=== PATIENT | male | born 1975 | race African-American/Black ===

== ENCOUNTER 2021-06-30 02:51 | Inpatient (IN) | payer OTHER ==
[2021-06-30] MEDS ORDERED: FUROSEMIDE 40 MG/4 ML VIAL ONE ×3 (03:14→16:47)
[2021-06-30 03:45] LABS: Absolute Lymphocytes (CBC) 2.4 K/uL (0.7-4.9); Hematocrit 43.4 % (39.6-49.0); Lymphocytes % 20.3 % (15.3-44.8); MPV 10.7 fL (7.6-11.3); RBC Red Blood Cell Count 4.96 M/uL (4.33-5.43)
[2021-06-30 03:56] LABS: Bilirubin Direct 0.3 mg/dL (0-0.2); Potassium 3.7 mmol/L (3.5-5.1); Protein, Total 7.4 g/dL (6.4-8.2); Troponin High Sensitivity 49.6 pg/mL (<58.9)
--- NOTE | 2021-06-30 04:18 | EDPHYS ---
Physician Documentation [facility] Name: Sophie Mancilla Age: 45 yrs Sex: Male : 1975 Arrival Date: 06/30/2021 Time: 02:54 Bed 5 Private MD: ED Physician Alfonzo Zelaya HPI: 06/30 04:12 This 45 yrs old Black Male presents to ER via Ambulatory with complaints of Shortness rn of breath, edema - Lower half of body. 04:12 The patient has shortness of breath with light activity. Onset: The symptoms/episode rn began/occurred 1 month(s) ago. Duration: The symptoms are intermittent. The patient's shortness of breath is aggravated by exertion, light activity, supine position, talking, walking. Associated signs and symptoms: Pertinent positives: non-productive cough, Pertinent negatives: chest pain, fever, hemoptysis. Severity of symptoms: At their worst the symptoms were moderate in the emergency department the symptoms are unchanged. The patient has not experienced similar symptoms in the past. The patient has been recently seen by a physician:. Patient reports 1 month of progressive swelling of lower extremities, started at ankles, progressed upwards, now has swelling of lower abdominal wall and of genitals. Reports pants are not fitting him. Reports orthopnea and dyspnea on exertion with nonproductive cough at night that is prompted him to sleep upright. PCP is ordered some tests and made him an appointment with cardiology but has not been able to get in yet.. Historical: - Allergies: 03:43 No Known Allergies; mk - Home Meds: 03:43 None [Active]; - PMHx: 03:43 Diabetes mellitus; - Immunization history:: Adult Immunizations up to date. - Social history:: Smoking status: Patient denies any tobacco usage or history of. - Family history:: not pertinent. - Hospitalizations: : No recent hospitalization is reported. ROS: 04:12 Constitutional: Negative for fever, chills, and weight loss, Eyes: Negative for injury, rn pain, redness, and discharge, Neck: Negative for injury, pain, and swelling, Cardiovascular: Positive for edema Respiratory: Positive for shortness of breath Abdomen/GI: Negative for abdominal pain, nausea, vomiting, diarrhea, and constipation, Back: Negative for injury and pain, : Negative for injury, bleeding, discharge, and swelling, MS/Extremity: Negative for injury and deformity, Skin: Negative for injury, rash, and discoloration, Neuro: Negative for headache, weakness, numbness, tingling, and seizure. Exam: 04:12 Constitutional: This is a well developed, well nourished patient who is awake, alert, rn mild tachypnea Head/Face: Normocephalic, atraumatic. Eyes: Periorbital areas with no swelling, redness, or edema. ENT: No stridor Cardiovascular: Tachycardic, regular Respiratory: Mild tachypnea, no retractions Abdomen/GI: Soft, nontender, pitting edema lower anterior abdominal wall Back: Pitting edema lower back Skin: Warm, dry Neuro: Awake and alert, GCS 15, oriented to person, place, time, and situation. Cranial nerves II-XII grossly intact. Motor strength 5/5 in all extremities. Sensory grossly intact. Vital Signs: 03:05 BP 141 / 100; Pulse 121; Resp 20; Temp 98.3; Pulse Ox 98% on R/A; mk 04:45 BP 115 / 64; Pulse 108; Resp 20; Pulse Ox 98% on R/A; mk 05:45 BP 107 / 58; Pulse 112; Resp 20; Pulse Ox 98% on R/A; mk 07:41 Weight 162 kg; Height 6 ft. 2 in. (187.96 cm); vg1 20:09 BP 119 / 79; Pulse 107; Resp 20; Pulse Ox 98% on R/A; st1 07:41 Body Mass Index 45.85 (162.00 kg, 187.96 cm) vg1 [place] Coma Score: 04:45 Eye Response: spontaneous(4). Verbal Response: oriented(5). Motor Response: obeys mk commands(6). Total: 15. 05:45 Eye Response: spontaneous(4). Verbal Response: oriented(5). Motor Response: obeys mk commands(6). Total: 15. MDM: 03:04 Patient medically screened. rn 04:12 Differential diagnosis: Anemia Anxiety Reaction CHF exacerbation, pneumonia, rn Pneumothorax pulmonary edema. Data reviewed: vital signs, nurses notes, lab test result(s), EKG, radiologic studies, plain films, and as a result, I will admit patient. Counseling: I had a detailed discussion with the patient and/or guardian regarding: the historical points, exam findings, and any diagnostic results supporting the discharge/admit diagnosis, lab results, radiology results, the need for further work-up and treatment in the hospital. Response to treatment: the patient's symptoms have mildly improved after treatment, and as a result, I will admit patient. Admission orders: after a detailed discussion of the patient's condition and case, the admit orders are written by me. 05:18 ED course: Patient COVID-positive, patient states had COVID along with his family rn around Varun time and states got better. Today symptoms more consistent with CHF or cardiomyopathy and not infectious.. 06/30 03:13 Order name: Basic Metabolic Panel; Complete Time: 04:04 rn 06/30 03:13 Order name: CBC with Diff; Complete Time: 04:10 rn 06/30 03:13 Order name: LFT's; Complete Time: 04:10 rn 06/30 03:13 Order name: NT PRO-BNP; Complete Time: 04:04 rn 06/30 03:13 Order name: Troponin HS; Complete Time: 04:10 rn 06/30 03:13 Order name: COVID-19/FLU A+B (Document "Date of Onset" if Symptomatic); Complete Time: rn 06/30 03:13 Order name: XRAY Chest (1 view); Complete Time: 19:21 rn 06/30 03:13 Order name: EKG; Complete Time: 03:14 rn 06/30 07:51 Order name: Glucose, Ancillary Testing; Complete Time: 19:21 EDNC 06/30 08:51 Order name: Urine Dipstick-Ancillary; Complete Time: 19:21 EDNC 06/30 09:34 Order name: Urinalysis; Complete Time: 19:21 EDNC 06/30 12:22 Order name: Glucose, Ancillary Testing; Complete Time: :21 EDNC 06/30 17:07 Order name: Glucose, Ancillary Testing; Complete Time: 19:21 EDNC 06/30 03:13 Order name: Cardiac monitoring; Complete Time: 03:22 rn 06/30 03:13 Order name: EKG - Nurse/Tech; Complete Time: 03:22 rn 06/30 03:13 Order name: IV Saline Lock; Complete Time: 03:22 rn 06/30 03:13 Order name: Labs collected and sent; Complete Time: 03:22 rn 06/30 03:13 Order name: O2 Per Protocol; Complete Time: 03:22 rn 06/30 03:13 Order name: O2 Sat Monitoring; Complete Time: 03:22 rn Administered Medications: 03:23 Drug: Lasix (furosemide) 40 mg Route: IVP; Site: right antecubital; sm5 Disposition Summary: 06/30/21 04:16 Hospitalization Ordered Hospitalization Status: Inpatient Admission rn Provider: Dennis Demarco rn Condition: Stable rn Problem: an ongoing problem rn Symptoms: have improved rn Bed/Room Type: Standard rn Location: Telemetry/MedSurg (Inpatient)(06/30/21 18:49) bd Room Assignment: [facility](06/30/21 18:49) Diagnosis - Unspecified combined systolic (congestive) and diastolic (congestive) heart failure rn - Acute pulmonary edema rn - Dyspnea, unspecified rn Forms: - Medication Reconciliation Form rn - SBAR form rn Signatures: Dispatcher [employer] EDLeticia Larson Martha RN Alfonzo Garcia MD MD rn Attema, Lee, ACQUISITION ADVISOR-C ACQUISITION ADVISOR-Cla1 Kayla Panchal RN RN sm5 Donna Shirley RN RN mk Corrections: (The following items were deleted from the chart) 04:52 04:16 Telemetry/MedSurg (Inpatient) rn mw 04:52 04:16 rn mw 18:49 04:52 BR ER HOLD mw bd 18:49 04:52 ERHOLD- mw bd
--- NOTE | 2021-06-30 04:18 | ER ---
Nurse's Notes [facility] Name: Sophie Mancilla Age: 45 yrs Sex: Male : 1975 Arrival Date: 06/30/2021 Time: 02:54 Bed 5 Private MD: Diagnosis: Unspecified combined systolic (congestive) and diastolic (congestive) heart failure;Acute pulmonary edema;Dyspnea, unspecified Presentation: 06/30 03:05 Chief complaint: Patient states: C/o swelling to lower abdomen and stomach for weeks, mk and recently started developing SOB. pt states he is supposed to see a picker box operator regarding this in the next few weeks. Coronavirus screen: Vaccine status: Patient reports being unvaccinated. Ebola Screen: Patient negative for fever greater than or equal to 101.5 degrees Fahrenheit, and additional compatible Ebola Virus Disease symptoms. Initial Sepsis Screen: Does the patient meet any 2 criteria? No. Patient's initial sepsis screen is negative. Does the patient have a suspected source of infection? No. Patient's initial sepsis screen is negative. Risk Assessment: Do you want to hurt yourself or someone else? Patient reports no desire to harm self or others. Onset of symptoms was May 30, 2021. 03:05 Method Of Arrival: Ambulatory 03:05 Acuity: BRADLEY 3 Triage Assessment: 19:41 General: Appears in no apparent distress. comfortable, Behavior is calm, cooperative. st1 Historical: - Allergies: 03:43 No Known Allergies; - Home Meds: 03:43 None [Active]; - PMHx: 03:43 Diabetes mellitus; - Immunization history:: Adult Immunizations up to date. - Social history:: Smoking status: Patient denies any tobacco usage or history of. - Family history:: not pertinent. - Hospitalizations: : No recent hospitalization is reported. Screenin:43 Abuse screen: Denies threats or abuse. Nutritional screening: No deficits noted. Tuberculosis screening: No symptoms or risk factors identified. Fall Risk No fall in past 12 months (0 pts). No secondary diagnosis (0 pts). IV access (20 points). Ambulatory Aid- None/Bed Rest/Nurse Assist (0 pts). Gait- Normal/Bed Rest/Wheelchair (0 pts) Mental Status- Oriented to own ability (0 pts). Total Nicole Fall Scale indicates No Risk (0-24 pts). Assessment: 03:45 Neuro: Level of Consciousness is awake, alert, obeys commands, Oriented to person, mk place, time, situation, Moves all extremities. Gait is steady, Speech is normal. Cardiovascular: Heart tones S1 S2 present Capillary refill < 3 seconds in bilateral fingers toes Clubbing of nail beds is absent JVD is absent Patient's skin is warm and dry. Pulses are 2+ in right radial artery, right dorsalis pedis artery, left radial artery and left dorsalis pedis artery Edema is 2+ to left lower thigh, left knee, left midcalf, left ankle, left foot, right lower thigh, right knee, right midcalf, right ankle and right foot Rhythm is sinus tachycardia. Respiratory: Reports shortness of breath on exertion Airway is patent Trachea Respiratory effort is even, unlabored, Respiratory pattern is regular, symmetrical, Breath sounds are clear. GI: Abdomen is distended. : No signs and/or symptoms were reported regarding the genitourinary system. Derm: Skin is intact, is healthy with good turgor. 07:03 Pain: Denies pain. mk Vital Signs: 03:05 BP 141 / 100; Pulse 121; Resp 20; Temp 98.3; Pulse Ox 98% on R/A; mk 04:45 BP 115 / 64; Pulse 108; Resp 20; Pulse Ox 98% on R/A; mk 05:45 BP 107 / 58; Pulse 112; Resp 20; Pulse Ox 98% on R/A; mk 07:41 Weight 162 kg; Height 6 ft. 2 in. (187.96 cm); vg1 20:09 BP 119 / 79; Pulse 107; Resp 20; Pulse Ox 98% on R/A; st1 07:41 Body Mass Index 45.85 (162.00 kg, 187.96 cm) vg1 [place] Coma Score: 04:45 Eye Response: spontaneous(4). Verbal Response: oriented(5). Motor Response: obeys commands(6). Total: 15. 05:45 Eye Response: spontaneous(4). Verbal Response: oriented(5). Motor Response: obeys mk commands(6). Total: 15. ED Course: 02:54 Patient arrived in ED. wm 03:04 Alfonzo Zelaya MD is Attending Physician. rn 03:22 XRAY Chest (1 view) Sent. sm5 03:22 COVID-19/FLU A+B (Document "Date of Onset" if Symptomatic) Sent. sm5 03:22 Basic Metabolic Panel Sent. sm5 03:22 CBC with Diff Sent. sm5 03:22 LFT's Sent. sm5 03:22 NT PRO-BNP Sent. sm5 03:22 Troponin HS Sent. sm5 03:42 Triage completed. 04:11 XRAY Chest (1 view) In Process Unspecified. EDMS 04:16 Dennis Demarco DO is Hospitalizing Provider. rn 07:17 Birdie Rodriguez, ILYA is Primary Nurse. vg1 19:41 No provider procedures requiring assistance completed. st1 19:41 Arm band placed on right wrist. st1 19:41 Patient has correct armband on for positive identification. Bed in low position. Call st1 light in reach. Side rails up X 1. 20:09 Patient admitted, IV remains in place. st1 Administered Medications: 03:23 Drug: Lasix (furosemide) 40 mg Route: IVP; Site: right antecubital; [facility] Output: 07:03 Urine: 3000ml; Total: 3000ml. Outcome: 04:16 Decision to Hospitalize by Provider. rn 20:07 Admitted to Tele accompanied by nurse, via wheelchair, room 413, with chart, Report st1 called to ILYA Sanchez 20:09 Condition: stable st1 20:09 Instructed on the need for admit. 20:13 Patient left the ED. st1 Signatures: Dispatcher [employer] EDCO Alfonzo Zelaya MD MD rn Garcia, Victoria RN ILYA 1 María Gupta Sarah, RN RN sm5 Kotarski, Madeline, RN RN mk Tingle, Shellie, RN RN st1 Corrections: (The following items were deleted from the chart) 07:06 03:00 Neuro: Level of Consciousness is awake, alert, obeys commands, Oriented to person, place, time, situation, Moves all extremities. Gait is steady, Speech is normal, 07:06 03:00 Cardiovascular: [facility] 07:06 03:00 Cardiovascular: Heart tones S1 S2 present Capillary refill < 3 seconds in bilateral fingers toes Clubbing of nail beds is absent JVD is absent Patient's skin is warm and dry. Pulses are 2+ in right radial artery, right dorsalis pedis artery, left radial artery and left dorsalis pedis artery Edema is 2+ to left lower thigh, left knee, left midcalf, left ankle, left foot, right lower thigh, right knee, right midcalf, right ankle and right foot Rhythm is sinus tachycardia 03:00 Respiratory: Reports shortness of breath on exertion Airway is patent Trachea Respiratory effort is even, unlabored, Respiratory pattern is regular, symmetrical, Breath sounds are clear 03:00 GI: Abdomen is distended, [facility] 03:00 : No signs and/or symptoms were reported regarding the genitourinary system. [facility] 03:00 Derm: Skin is intact, is healthy with good turgor, [facility]
--- NOTE | 2021-06-30 04:29 | P.HP ---
Certification for Inpatient Patient admitted to: Observation With expected LOS: <2 Midnights Patient will require the following post-hospital care: None Practitioner: I am a practitioner with admitting privileges, knowledge of patient current condition, hospital course, and medical plan of care. Services: Services provided to patient in accordance with Admission requirements found in Title 42 Section 412.3 of the Code of Federal Regulations Patient History Date of Service: 06/30/21 Primary Care Provider: Enrique crenshaw Reason for admission: Dyspnea, edema History of Present Illness: 45-year-old -Northern Irish female with history of diabetes mellitus type 2 presents emergency department for progressive lower extremity edema, shortness of breath over the course of the last 1 month. Patient was evaluated in the emergency department labs were significant for white blood cell count 1.7 creatinine 1.32 GFR 71 glucose 126 BNP 3544 chest x-ray appears to show mild to moderate volume overload pattern. Patient with 3+ pitting edema bilateral lower extremities, anasarca of lower abdomen and swelling of the scrotum. Suspected n ew onset CHF, ED provider wishes to admit for further evaluation and management. - Past Medical/Surgical History -: Diabetes mellitus type 2 -: None Psychosocial/ Personal History: Patient is employed as orchard worker, lives at home with his - Family History Family History: Reviewed- Non-Contributory - Social History Smoking Status: Never smoker Alcohol use: No CD- Drugs: Yes Caffeine use: No Place of Residence: Home Review of Systems 10-point ROS is otherwise unremarkable Respiratory: Cough ( ), Shortness of Breath Cardiovascular: Paroxysmal Noc. Dyspnea, Edema Physical Examination - Physical Exam General: Alert, In no apparent distress, Oriented x3 HEENT: Atraumatic, PERRLA, Mucous membr. moist/pink, EOMI, Sclerae nonicteric Neck: Supple, 2+ carotid pulse no bruit, No LAD, Without JVD or thyroid abnormality Respiratory: Normal air movement, Crackles/rales Cardiovascular: Regular rate/rhythm, Normal S1 S2, Edema Gastrointestinal: Normal bowel sounds, No tenderness Musculoskeletal: No tenderness Integumentary: No rashes Neurological: Normal gait, Normal speech, Normal strength at 5/5 x4 extr, Normal tone, Normal affect Lymphatics: No axilla or inguinal lymphadenopathy - Studies Laboratory Data (last 24 hrs) 06/30/21 03:16: WBC 11.70 H, Hgb 14.1, Hct 43.4, Plt Count 184 06/30/21 03:16: Sodium 142, Potassium 3.7, BUN 10, Creatinine 1.32 H, Glucose 126 H, Total Bilirubin 1.0, AST 19, ALT 38, Alkaline Phosphatase 59 Assessment and Plan - Plan Assessment: Dyspnea, lower extremity edema, anasarca secondary to suspected new onset CHFunknown EF Diabetes mellitus type [id number] Renal insufficiency Plan: Dyspnea, lower extremity edema, anasarca secondary to suspected new onset CHFunknown EF: Initiate therapy with Lasix 40 mg IV twice daily, metoprolol 50 mg p.o. twice daily, aspirin, statin therapy. Cardiology consulted, echocardiogram ordered. Suspect diastolic dysfunction. Appreciate further input from cardiology Diabetes mellitus type [id number]: Patient does not take any medications at home, a [facility] Accu-Chek, sliding scale insulin. A1c with morning labs. Renal insufficiency: Suspect patient with baseline renal insufficiency, continue diuresis at this time, consult nephrology for worsening renal function. DVT PPX: Lovenox Code status: Full Discharge Plan: Home Plan to discharge in: 24 Hours - Advance Directives Does patient have a Living Will: No Does patient have a Durable POA for Healthcare: No - Code Status/Comfort Care Code Status Assessed: Yes (Full code) Critical Care: No Time Spent Managing Pts Care (In Minutes): 55
[2021-06-30 05:16] LABS: SARS-COV-2 RT PCR POSITIVE (NEGATIVE)
[2021-06-30] MEDS ORDERED: ONDANSETRON 4 MG/2 ML VIAL IV PRN (06:04)
--- NOTE | 2021-06-30 06:19 | P.PN ---
Subjective Date of Service: 06/30/21 Primary Care Provider: Enrique crenshaw Chief Complaint: Dyspnea, edema Subjective: Improving Physical Examination - Studies Laboratory Data (last 24 hrs) 06/30/21 03:16: WBC 11.70 H, Hgb 14.1, Hct 43.4, Plt Count 184 06/30/21 03:16: Sodium 142, Potassium 3.7, BUN 10, Creatinine 1.32 H, Glucose 126 H, Total Bilirubin 1.0, AST 19, ALT 38, Alkaline Phosphatase 59 Assessment & Plan Discharge Plan: Home Plan to discharge in: 24 Hours Physician Review Additional Text: COVID: Positive CXR: COMPARISON: No comparisons FINDINGS: Lines: None. Lungs: Diffuse interstitial thickening. Pleural: No significant pleural effusions or pneumothorax. Cardiac: Cardiomegaly. Bones: No acute fractures. IMPRESSION: Findings most likely representing congestive heart failure. ECHO Preliminary report shows ejection fraction 22% Physical Exam: General: Alert, In no apparent distress, Oriented x3 HEENT: Neck supple Respiratory: Normal air movement, Crackles/rales better air movement noted. Currently on room air Cardiovascular: Regular rate/rhythm, Normal S1 S2, Edema Gastrointestinal: Normal bowel sounds, No tenderness Musculoskeletal: No tenderness Integumentary: 1-2+ pitting edema to the lower extremities Neurological: Normal gait, Normal speech, Normal strength at 5/5 x4 extr, Normal tone, Normal affect Lymphatics: No axilla or inguinal lymphadenopathy Impression: Dyspnea, lower extremity edema, anasarca secondary to suspected new onset CHFunknown EF Diabetes mellitus type [id number] COVID Positive, asymptomatic Plan: Dyspnea, lower extremity edema, anasarca secondary to new acute systolic congestive heart failure with ejection fraction of 22%: We will confirm echo wit h cardiology. Continue Lasix 40 mg IV twice daily. We will start carvedilol. Continue aspirin and statin medication. Will discuss with cardiology. Continue diuresis. Likely home in the next 24 hours. Await further recommendations from cardiology. Diabetes mellitus type [id number]: We will check A1c. Continue Accu-Cheks and sliding scale. COVID Positive, asymptomatic: Will monitor. DVT PPX: Lovenox Code status: Full code Discharge Plan: Home at discharge Time Spent Managing Pts Care (In Minutes): 55
[2021-06-30] MEDS: INSULIN -REGULAR HUMAN 50 UNIT/0.5 ML ML SQ SCH ×4 (07:30→21:00)
--- NOTE | 2021-06-30 07:37 | RAD REPORT ---
EXAM DESCRIPTION: RAD - Chest Single View - 06/30/2021 4:11 am CLINICAL HISTORY: Cough;Dyspnea COMPARISON: No comparisons FINDINGS: Lines: None. Lungs: Diffuse interstitial thickening. Pleural: No significant pleural effusions or pneumothorax. Cardiac: Cardiomegaly. Bones: No acute fractures. Other: IMPRESSION: Findings most likely representing congestive heart failure.
[2021-06-30 08:51] LABS: Urine Blood Negative (Negative); Urine Glucose Negative (Negative); Urine Protein Negative (Negative); Urine Specific Gravity 1.015 (1.005-1.030); Urine pH 6.5 (5.0-7.0)
[2021-06-30] MEDS ORDERED: METOPROLOL TAR 50 MG TAB PO SCH (09:00)
[2021-06-30] MEDS: FUROSEMIDE 40 MG/4 ML VIAL IV SCH ×2 (09:00→16:57)
[2021-06-30] MEDS: ENOXAPARIN 40 MG/0.4 ML SQ SCH (09:00)
[2021-06-30] MEDS: ASPIRIN EC 81 MG TAB PO SCH (09:00)
[2021-06-30] MEDS ORDERED: ASPIRIN EC 81 MG TAB PO ONE ×2 (09:22→09:24)
[2021-06-30] MEDS ORDERED: ENOXAPARIN 40 MG/0.4 ML SQ ONE (09:23)
[2021-06-30 09:26] LABS: Urine Appearance CLEAR (Clear); Urine Bilirubin NEGATIVE (Negative); Urine Blood NEGATIVE (Negative); Urine Color YELLOW (Yellow); Urine Glucose NEGATIVE (Negative); Urine Protein NEGATIVE (Negative); Urine Specific Gravity <=1.005 (1.005-1.030); Urine Urobilinogen 0.2 mg/dL (0.2-1.0); Urine pH 6.5 (5.0-7.0)
[2021-06-30 09:34] LABS: Urine Microscopic Reflex NO UMIC
[2021-06-30] MEDS ORDERED: carvediloL 3.125 MG TAB PO SCH (18:00)
[2021-06-30] MEDS ORDERED: ATORVASTATIN 40 MG TAB PO SCH (21:00)
[2021-06-30] MEDS: carvediloL 6.25 MG TAB PO SCH (21:29)
[2021-07-01 03:42] LABS: Absolute Lymphocytes (CBC) 2.3 K/uL (0.7-4.9); Hematocrit 41.8 % (39.6-49.0); Lymphocytes % 18.7 % (15.3-44.8); MPV 10.6 fL (7.6-11.3); RBC Red Blood Cell Count 4.83 M/uL (4.33-5.43)
[2021-07-01 04:25] LABS: Albumin 2.7 g/dL (3.4-5.0); Bilirubin Total 0.9 mg/dL (0.2-1.0); Magnesium 2.2 mg/dL (1.8-2.4); Potassium 3.9 mmol/L (3.5-5.1); Protein, Total 6.6 g/dL (6.4-8.2); Thyroid Stimulating Hormone 2.45 uIU/mL (0.360-3.740)
[2021-07-01] MEDS: carvediloL 6.25 MG TAB PO SCH (05:53)
--- NOTE | 2021-07-01 06:04 | P.PN ---
Subjective Date of Service: 07/01/21 Primary Care Provider: Enrique crenshaw Chief Complaint: Dyspnea, edema Subjective: Improving, Doing well Physical Examination - Vital Signs Temperature: 97.6 F Blood Pressure: 101/62 Pulse: 101 Respirations: 18 Pulse Ox (%): 94 Assessment & Plan Discharge Plan: Home Plan to discharge in: 24 Hours Physician Review Additional Text: COVID: Positive CXR: COMPARISON: No comparisons FINDINGS: Lines: None. Lungs: Diffuse interstitial thickening. Pleural: No significant pleural effusions or pneumothorax. Cardiac: Cardiomegaly. Bones: No acute fractures. IMPRESSION: Findings most likely representing congestive heart failure. ECHO MEASUREMENTS (cm) DIASTOLIC (NORMALS) SYSTOLIC (NORMALS) IVSd 1.1 (0.6-1.2) LA Diam 5.5 (1.9-4.0) LVEF 22% LVIDd 7.7 (3.5-5.7) LVIDs 6.9 (2.0-3.5) %FS 11% LVPWd 1.2 (0.6-1.2) Ao Diam 3.0 (2.0-3.7) 2 DIMENSIONAL ASSESSMENT: RIGHT ATRIUM: NORMAL LEFT ATRIUM: DILATED RIGHT VENTRICLE: NORMAL LEFT VENTRICLE: DILATED TRICUSPID VALVE: NORMAL MITRAL VALVE: NORMAL PULMONIC VALVE: NORMAL AORTIC VALVE: NORMAL PERICARDIAL EFFUSION: NONE AORTIC ROOT: NORMAL LEFT VENTRICULAR WALL MOTION: SEVERE GLOBAL HYPOKINESIS. DOPPLER/COLOR FLOW: MILD MITRAL AND TRICUSPID REGURGITATION. COMMENTS: DILATED CARDIOMYOPATHY. SEVERE GLOBAL HYPOKINESIS. MILD MITRAL A ND TRICUSPID REGURGITATION. EJECTION FRACTION 22%. Physical Exam: General: Alert, In no apparent distress, Oriented x3 HEENT: Neck supple Respiratory: Better air movement. Currently on room air Cardiovascular: Regular rate/rhythm, Normal S1 S2, Edema Gastrointestinal: Normal bowel sounds, No tenderness Musculoskeletal: No tenderness Integumentary: Pitting edema to the lower extremities significantly improved Neurological: Normal gait, Normal speech, Normal strength at 5/5 x4 extr, Normal tone, Normal affect Lymphatics: No axilla or inguinal lymphadenopathy Impression: Dyspnea, lower extremity edema, anasarca secondary to new acute systolic congestive heart failure with ejection fraction 22% with noted dilated cardiomyopathy Diabetes mellitus type [id number] COVID Positive, asymptomatic Plan: Dyspnea, lower extremity edema, anasarca secondary to new acute systolic congestive heart failure with ejection fraction of 22% with noted dilated cardiomyopathy: Case discussed in detail with cardiology. Patient has done well with IV diuresis. We will plan for discharge today. At discharge patient will continue with aspirin 80 mg daily, Lasix 40 mg 1 pill twice daily, Aldactone 25 mg daily, carvedilol 3 1.25 mg 1 pill twice daily, and Entresto 24/26 mg 1 pill twice daily. Patient will be taught on 1500 cc/day fluid restriction and low- salt diet. Patient will follow-up with cardiology within the next couple of days as an outpatient. Education on CHF provided. Diabetes mellitus type [id number]: A1c 5.5. No need for medication at discharge. This can be monitored as an outpatient with diet. Hypertension: Patient started on carvedilol 3.125 mg twice daily. Hold if blood pressure less than 110 systolic. COVID Positive, asymptomatic: Patient asymptomatic. Education on COVID provid ed.. DVT PPX: Lovenox Code status: Full code Discharge Plan: Home at discharge Time Spent Managing Pts Care (In Minutes): 55
[2021-07-01 06:55] VITALS: BMI 59.3
[2021-07-01] MEDS: INSULIN -REGULAR HUMAN 50 UNIT/0.5 ML ML SQ SCH (07:30)
--- NOTE | 2021-07-01 07:32 | ECHO ---
HEIGHT: 5 ft 5 in WEIGHT: 357 lb 0 oz DATE OF STUDY: 06/30/[address]: Tio Wong NP 2-DIMENSIONAL: YES M.MODE: YES DOPPLER: YES COLOR FLOW: YES TDS: NO PORTABLE: NO DEFINITY: NO BUBBLE STUDY: NO DIAGNOSIS: EDEMA CARDIAC HISTORY: CATHERIZATION: SURGERY: PROSTHETIC VALVE: PACEMAKER: MEASUREMENTS (cm) DIASTOLIC (NORMALS) SYSTOLIC (NORMALS) IVSd 1.1 (0.6-1.2) LA Diam 5.5 (1.9-4.0) LVEF 22% LVIDd 7.7 (3.5-5.7) LVIDs 6.9 (2.0-3.5) %FS 11% LVPWd 1.2 (0.6-1.2) Ao Diam 3.0 (2.0-3.7) 2 DIMENSIONAL ASSESSMENT: RIGHT ATRIUM: NORMAL LEFT ATRIUM: DILATED RIGHT VENTRICLE: NORMAL LEFT VENTRICLE: DILATED TRICUSPID VALVE: NORMAL MITRAL VALVE: NORMAL PULMONIC VALVE: NORMAL AORTIC VALVE: NORMAL PERICARDIAL EFFUSION: NONE AORTIC ROOT: NORMAL LEFT VENTRICULAR WALL MOTION: SEVERE GLOBAL HYPOKINESIS. DOPPLER/COLOR FLOW: MILD MITRAL AND TRICUSPID REGURGITATION. COMMENTS: DILATED CARDIOMYOPATHY. SEVERE GLOBAL HYPOKINESIS. MILD MITRAL AND TRICUSPID REGURGITATION. EJECTION FRACTION 22%. TECHNOLOGIST: ADAM THURSTON
[2021-07-01] MEDS: ASPIRIN EC 81 MG TAB PO SCH (08:06)
[2021-07-01] MEDS: ENOXAPARIN 40 MG/0.4 ML SQ SCH (08:06)
[2021-07-01] MEDS: FUROSEMIDE 40 MG/4 ML VIAL IV SCH (08:06)
[2021-07-01 09:57] VITALS: O2SAT 91
[2021-07-01 10:18] VITALS: BP 101/62; TEMP 97.6
--- NOTE | 2021-07-01 10:24 | P.DS ---
Admission Date: 06/30/21 Discharge Date: 07/01/21 Primary Care Provider: Enrique crenshaw Disposition: ROUTINE DISCHARGE Discharge Condition: GOOD Reason for Admission: Dyspnea, edema Consultations: Cardiology-Dr. Stephen Procedures: COVID: Positive CXR: COMPARISON: No comparisons FINDINGS: Lines: None. Lungs: Diffuse interstitial thickening. Pleural: No significant pleural effusions or pneumothorax. Cardiac: Cardiomegaly. Bones: No acute fractures. IMPRESSION: Findings most likely representing congestive heart failure. ECHO MEASUREMENTS (cm) DIASTOLIC (NORMALS) SYSTOLIC (NORMALS) IVSd 1.1 (0.6-1.2) LA Diam 5.5 (1.9-4.0) LVEF 22% LVIDd 7.7 (3.5-5.7) LVIDs 6.9 (2.0-3.5) %FS 11% LVPWd 1.2 (0.6-1.2) Ao Diam 3.0 (2.0-3.7) 2 DIMENSIONAL ASSESSMENT: RIGHT ATRIUM: NORMAL LEFT ATRIUM: DILATED RIGHT VENTRICLE: NORMAL LEFT VENTRICLE: DILATED TRICUSPID VALVE: NORMAL MITRAL VALVE: NORMAL PULMONIC VALVE: NORMAL AORTIC VALVE: NORMAL PERICARDIAL EFFUSION: NONE AORTIC ROOT: NORMAL LEFT VENTRICULAR WALL MOTION: SEVERE GLOBAL HYPOKINESIS. DOPPLER/COLOR FLOW: MILD MITRAL AND TRICUSPID REGURGITATION. COMMENTS: DILATED CARDIOMYOPATHY. SEVERE GLOBAL HYPOKINESIS. MILD MITRAL AND TRICUSPID REGURGITATION. EJECTION FRACTION 22%. Medical Problem List: Dyspnea, lower extremity edema, anasarca secondary to new acute systolic congestive heart failure with ejection fraction 22% with noted dilated cardiomyopathy Diabetes mellitus type [id number] COVID Positive, asymptomatic Brief History of Present Illness: 45-year-old -[place] female with history of diabetes mellitus type 2 presents emergency department for progressive lower extremity edema, shortness of breath over the course of the last 1 month. Patient was to see cardiology soon. Patient admitted for CHF evaluation. Hospital Course: Patient presented with dyspnea, lower extremity edema secondary to new acute systolic congestive heart failure. Patient was admitted for treatment. Patient received IV diuretic therapy with improvement. Cardiology was consulted. Echocardiogram shows ejection fraction 22% with noted dilated cardiomyopathy. Patient has done well with diuresis. Case discussed in detail with cardiology. At discharge patient will continue with 1500 cc/day fluid restriction and low- salt diet. Recommend to monitor his weight daily. At discharge patient will continue with aspirin 81 mg daily, Lasix 40 mg 1 pill twice daily, Aldactone 25 mg daily, carvedilol 3.125 mg 1 pill twice daily, and Entresto 24/26 mg 1 pill twice daily. Hold carvedilol and Entresto if blood pressure less than 110 systolic. Education on CHF provided. Patient will follow-up with cardiology within the next couple of days to follow-up to his hospitalization and to further evaluate his condition. Recommend to recheck labCMP and fasting lipid panel in 2 to 4 weeks to monitor his progress. Patient will likely require further cardiac work-up as an outpatient. Follow-up with PCP in 1 week to follow-up his hospitalization. Patient with diabetes mellitus type 2. Patient previously on metformin but is no longer taking medication at this time. Hemoglobin A1c 5.5. No need for medication at discharge. Recommend to maintain blood sugar less than 140 fasting and less than 200 after meals. Recommend to recheck hemoglobin A1c in 3 months to monitor his progress. Follow-up with PCP to further monitor and address. Patient with hypertension. As mentioned above patient will continue with carvedilol 3.125 mg 1 pill twice daily. Recommend to maintain blood pressure less than 130/80. If blood pressure remains above 140/90 further adjustment may be required. Recommend to hold carvedilol if blood pressure systolic less than 110. Patient will also be taking Entresto. Hold Entresto if blood pressure less than 110. Recommend follow-up with PCP and cardiology to further monitor. Patient was positive for COVID-19. Patient asymptomatic at this time. Patient reports that he had tested positive recently. Continue with COVID-19 education including handwashing, facemask use and social distancing. Vital Signs/Physical Exam: Temp Pulse Resp BP Pulse Ox 97.6 F 101 H 18 101/62 94 07/01/21 10:19 07/01/21 10:19 07/01/21 10:19 07/01/21 10:19 07/01/21 10:19 General: Alert, In no apparent distress, Oriented x3, Cooperative HEENT: Atraumatic Neck: Supple Respiratory: Clear to auscultation bilaterally, Normal air movement Cardiovascular: Normal pulses, Regular rate/rhythm Gastrointestinal: Normal bowel sounds, No tenderness, No masses, No rebound, No guarding Musculoskeletal: No erythema, No tenderness, No warmth Integumentary: No tenderness/swelling, No erythema, No warmth, No cyanosis Neurological: Normal speech, Normal strength at 5/5 x4 extr, Normal tone, Normal affect Laboratory Data at Discharge: WBC 12.10 K/uL (4.3-10.9) H 07/01/21 03:14 Hgb 13.5 g/dL (13.6-17.9) L 07/01/21 03:14 Hct 41.8 % (39.6-49.0) 07/01/21 03:14 Plt Count 182 K/uL (152-406) 07/01/21 03:14 Sodium 144 mmol/L (136-145) 07/01/21 03:14 Potassium 3.9 mmol/L (3.5-5.1) 07/01/21 03:14 BUN 13 mg/dL (7-18) 07/01/21 03:14 Creatinine 1.37 mg/dL (0.55-1.3) H 07/01/21 03:14 Glucose 113 mg/dL (74-106) H 07/01/21 03:14 Magnesium 2.2 mg/dL (1.8-2.4) 07/01/21 03:14 Total Bilirubin 0.9 mg/dL (0.2-1.0) 07/01/21 03:14 AST 20 U/L (15-37) 07/01/21 03:14 ALT 31 U/L (12-78) 07/01/21 03:14 Alkaline Phosphatase 54 U/L (45-117) 07/01/21 03:14 Home Medications: Aspirin [Aspirin EC 81 MG] 81 mg PO DAILY #90 tablet. 07/01/21 Atorvastatin Calcium [Lipitor] 40 mg PO BEDTIME #30 tab 07/01/21 Furosemide [Lasix*] 40 mg PO BIDL #60 tab 07/01/21 Sacubitril/Valsartan [Entresto 24 mg-26 mg Tablet] 1 tab PO BID #60 tab 07/01/21 Spironolactone [Aldactone*] 25 mg PO DAILY #30 tab 07/01/21 carvediloL [Coreg*] 3.125 mg PO BID 6AM 6PM #60 tab 07/01/21 New Medications: Spironolactone [Aldactone*] 25 mg PO DAILY #30 tab Aspirin [Aspirin EC 81 MG] 81 mg PO DAILY #90 tablet. carvediloL [Coreg*] 3.125 mg PO BID 6AM 6PM #60 tab Sacubitril/Valsartan [Entresto 24 mg-26 mg Tablet] 1 tab PO BID #60 tab Furosemide [Lasix*] 40 mg PO BIDL #60 tab Atorvastatin Calcium [Lipitor] 40 mg PO BEDTIME #30 tab Physician Discharge Instructions: Patient presented with dyspnea, lower extremity edema secondary to new acute systolic congestive heart failure. Patient was admitted for treatment. Patient received IV diuretic therapy with improvement. Cardiology was consulted. Echocardiogram shows ejection fraction 22% with noted dilated cardiomyopathy. Patient has done well with diuresis. Case discussed in detail with cardiology. At discharge patient will continue with 1500 cc/day fluid restriction and low- salt diet. Recommend to monitor his weight daily. At discharge patient will continue with aspirin 81 mg daily, Lasix 40 mg 1 pill twice daily, Aldactone 25 mg daily, carvedilol 3.125 mg 1 pill twice daily, and Entresto 24/26 mg 1 pill twice daily. Hold carvedilol and Entresto if blood pressure less than 110 systolic. Education on CHF provided. Patient will follow-up with cardiology within the next couple of days to follow-up to his hospitalization and to further evaluate his condition. Recommend to recheck labCMP and fasting lipid panel in 2 to 4 weeks to monitor his progress. Patient will likely require further cardiac work-up as an outpatient. Follow-up with PCP in 1 week to follow-up his hospitalization. Patient with diabetes mellitus type 2. Patient previously on metformin but is no longer taking medication at this time. Hemoglobin A1c 5.5. No need for medication at discharge. Recommend to maintain blood sugar less than 140 fasting and less than 200 after meals. Recommend to recheck hemoglobin A1c in 3 months to monitor his progress. Follow-up with PCP to further monitor and address. Patient with hypertension. As mentioned above patient will continue with carvedilol 3.125 mg 1 pill twice daily. Recommend to maintain blood pressure less than 130/80. If blood pressure remains above 140/90 further adjustment may be required. Recommend to hold carvedilol if blood pressure systolic less than 110. Patient will also be taking Entresto. Hold Entresto if blood pressure less than 110. Recommend follow-up with PCP and cardiology to further monitor. Patient was positive for COVID-19. Patient asymptomatic at this time. Patient reports that he had tested positive recently. Continue with COVID-19 education including handwashing, facemask use and social distancing. Diet: AHA Activity: Ad syed Followup: NONE,NONE [Primary Care Provider] - Time spent managing pt's care (in minutes): 55
[2021-07-01] MEDS ORDERED: FUROSEMIDE 40 MG TABLET PO SCH (17:00)
[2021-07-01] MEDS ORDERED: carvediloL 3.125 MG TAB PO SCH (18:00)
[2021-07-01] MEDS ORDERED: SACUBITRIL/VALSARTAN 24/26 MG TAB PO SCH (21:00)
[2021-07-02] MEDS ORDERED: SPIRONOLACTONE 25 MG TABLET PO SCH (09:00)
--- NOTE | 2021-07-02 13:05 | CON ---
Date of Consultation: 06/30/2021 I saw him on 06/30/2021. He was admitted on 06/30/2021. Reason For Consultation: Congestive heart failure. History Of Present Illness: Mr. Mancilla is a 45-year-old black male, with history of diabetes and ob esity. He weighs 357 pounds. He came in with 1-month history of shortness of breath, PND, orthopnea , pedal edema. No palpitation. No chest pain. No syncope. Was found to have congestive heart fail ure by x-ray. BNP was 3544. His creatinine is 1.37. He was also COVID positive. Allergies: NONE. Review of Systems: Negative. Social History: Negative. Family History: Noncontributory. Allergies: NONE. Medications: At home are none. Physical Examination: Which was done by Dr. Demarco. Vital Signs: Stable. Cardiac: He was a low tachycardic, sinus tach. Chest: Reveals some rales. Cardiac: Revealed S3 gallops. Abdomen: Obese, but benign. Extremities: Revealed 1+ edema. Diagnostic Data: As stated earlier. EKG is nonspecific. Echocardiogram which was done on the day h e came in showed an ejection fraction of 22%. Impression And Plan: Acute systolic congestive heart failure. Dilated cardiomyopathy. Left ventric le was 7 cm. Left atrial enlargement. Patient needs to have his regimen include carvedilol, spirono lactone, Lasix, and Entresto. The case was discussed with Dr. Demarco. He will be observed overnight and sent home and he will see Dr. Paredes in the near future. ZECHARIAH/PADMINI Voice ID: [id number] Report ID: [id number]
== END 2021-07-01 11:30 | disposition home or self-care (01) | DRG 291 ==
LOC: ER 02:51 → ERHOLD 04:39 → OBSVTOIN 16:39 → 4TH 19:47
PROVIDERS: ADMIT Family Medicine; ATTEND Family Medicine
DX: I11.0 Hypertensive heart disease with heart failure (principal); I50.21 Acute systolic (congestive) heart failure; U07.1 COVID-19; E11.9 Type 2 diabetes mellitus without complications; I42.0 Dilated cardiomyopathy; N28.9 Disorder of kidney and ureter, unspecified
CPT/HCPCS: 0240U; 36415; 71045; 80048; 80053; 80061; 80076; 81003; 82947; 83036; 83735; 83880; 84439; 84443; 84484; 85025; 93005; 93306; 96374; 99285; G0378; J1650; J1940